=== PATIENT | female | born 1990 | race Caucasian/White ===

== ENCOUNTER 2018-04-10 21:45 | Emergency (ER) | payer BC, OTHER ==
[~2018-04-10] VITALS: Ht 165.1 cm; Wt 52.2 kg
--- NOTE | ~2018-04-10 | EKG ---
[address] [place] [address] ELECTROCARDIOGRAM REPORT Name: HALINAANNY TONY Room #: [facility] [id number] Admission: 04/10/18 Attend Phys: Discharge: 04/10/18 Date of : 86 Report #: [id number] THIS REPORT FOR: //name// [facility] ED Test Date: 2018-04-10 Test Time: 22:53:21 Pat Name: ANNY MEADE Department: Room: Gender: F [employer]: jae : 1990 Requested By: Rustam Rosales Order Number: [id number] MD: Leonel Lara Measurements Intervals Elsie Rate: 60 P: 30 MS: 133 QRS: 65 QRSD: 90 T: 29 QT: 382 QTc: 382 Interpretive Statements Sinus rhythm RSR' in V1 or V2, right VCD Compared to ECG 11/08/2013 20:10:50 Sinus tachycardia no longer present T-wave abnormality no longer present Electronically Signed On 04-11-2018 8:06:59 CDT by Leonel Lara [email or web address] <ELECTRONICALLY SIGNED> By: Leonel Lara MD, [facility] 04/11/1806 2253 225 Leonel Lara MD, [facility] /EPI
[~2018-04-10 21:45] MED LIST: ACYCLOVIR 400400 MG; ACYCLOVIR 400400 MG PO; MACROBID 100 M100 M1 PO; NAPROSYN500 MG PO; NOHOMEMEDICATIONS; NORCO 5-325 TA1 EACH PO; PERCOCET 5-3251 EACH PO; TRAMADOL 50 MG50 MG PO; VIORELE 28 DAY1 EACH PO
[2018-04-10 22:38] LABS: HEMATOCRIT 40.1 % (37.0-47.0); HEMOGLOBIN 13.9 gm/dL (12.0-15.0); MCH 30.8 pg (26.0-34.0); MCHC 34.6 g/dL (28.0-37.0); RBC 4.5 mil/uL (4.20-5.00); RDW 12.3 % (10.5-14.5); WBC 9.6 thou/uL (4.0-11.0)
[2018-04-10] MEDS ORDERED: PEPCID20 MG PO (22:42)
[2018-04-10 22:46] LABS: CALCIUM 9.2 mg/dL (8.5-10.1); CREATININE 0.8 mg/dL (0.6-1.0)
[2018-04-10 22:48] LABS: POTASSIUM 2.9 mmol/L (3.5-5.1)
[2018-04-10 22:52] LABS: ALBUMIN 4.1 g/dL (3.4-5.0); TOTAL BILIRUBIN 0.7 mg/dL (<0.1-1.0); TOTAL PROTEIN 7.8 g/dL (6.4-8.2)
[2018-04-10] MEDS ORDERED: POTASSIUM20 PO (22:52)
[2018-04-10 23:17] VITALS: BP 102/62
== END 2018-04-10 23:18 | disposition home or self-care (01) ==
LOC: ER 21:45
PROVIDERS: Emergency Medicine
DX: K62.5 Hemorrhage of anus and rectum (principal); E87.6 Hypokalemia